=== PATIENT | male | born 1960 | race Caucasian/White ===

== ENCOUNTER 2017-08-24 06:55 | Emergency (ER) | payer OTHER ==
[~2017-08-24] VITALS: Ht 185.4 cm; Wt 86.2 kg
[2017-08-24] MEDS ORDERED: NAPROSYN500 MG PO (07:50)
[2017-08-24] MEDS ORDERED: KEFLEX500 M1 PO (08:58)
[2017-08-24 09:15] VITALS: BP 127/79
== END 2017-08-24 09:15 | disposition home or self-care (01) ==
LOC: ER 06:55
DX: M67.472 Ganglion, left ankle and foot (principal)

== ENCOUNTER 2020-03-07 20:37 | Observation (INO) | payer OTHER ==
[~2020-03-07] VITALS: Ht 182.9 cm; Wt 93.0 kg
--- NOTE | ~2020-03-07 | EEG ---
[facility] [place] [address] ELECTROENCEPHALOGRAM Name: KALEN BOLDEN Room #: 206-P [facility]..#: [id number] Admission: 03/08/20 Attend Phys: Akira Kulkarni MD Discharge: Date of : 60 Report #: [id number] THIS REPORT FOR: //name// CC: Akira De La Torre DATE OF SERVICE: 03/09/2020 This patient is being evaluated for an unusual spell. Background activity in this patient's EEG is about 9 Hz and 15 microvolt. It is low voltage activity. Photic stimulation is unremarkable. The patient became drowsy that is associated with bilateral slowing and vertex sharp waves. Throughout the record, no active epileptiform activity was noticed. IMPRESSION: This patient's EEG is somewhat low voltage, which is a normal variation. No active epileptiform activity was noticed. Thank you very much for this referral. By: 1516 1525 Moses Bustamante MD /nt
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
[~2020-03-07 20:37] MED LIST: KEFLEX500 M1 PO; NAPROSYN500 MG PO
[2020-03-07 20:54] VITALS: BP 124/77
[2020-03-07 21:58] LABS: ABSOLUTE NEUTROPHILS 5.2 thou/uL (1.4-8.2); BASOPHILS 0.3 % (0.0-2.0); EOSINOPHILS 2.5 % (0.0-3.0); HEMATOCRIT 49.4 % (42.0-52.0); HEMOGLOBIN 16.2 gm/dL (14.0-18.0); LYMPHOCYTES 14.1 % (24.0-44.0); MCH 28.3 pg (26.0-34.0); MCHC 32.8 g/dL (28.0-37.0); MCV 86.3 fL (80.0-100.0); PLATELET COUNT 204 thou/uL (150-400); POLYS 71.1 % (36.0-66.0); RBC 5.73 mil/uL (4.50-6.00); RDW 15.2 % (10.5-14.5); WBC 7.3 thou/uL (4.0-11.0)
[2020-03-07 22:04] LABS: ANION GAP 10 mmol/L (7-16); BUN 15 mg/dL (7-18); CALCIUM 8.6 mg/dL (8.5-10.1); CHLORIDE 106 mmol/L (98-107); CO2 25 mmol/L (21-32); CREATININE 1.2 mg/dL (0.7-1.3); GLUCOSE 153 mg/dL (74-106); POTASSIUM 3.8 mmol/L (3.5-5.1); SODIUM 141 mmol/L (136-145)
[2020-03-07 22:13] LABS: MAGNESIUM 1.7 mg/dL (1.8-2.4); TROPONIN-I <0.06 ng/mL (<0.06)
[2020-03-08] VITALS (9 sets, daily range): BP systolic 114–138; BP diastolic 72–86
--- NOTE | 2020-03-08 01:26 | NUR ---
GIRLFRIEND: TERESO MONTELONGO - [phone] CALL WITH ANY UPDATES
--- NOTE | 2020-03-08 16:08 | NUR ---
PT CAME TO UNIT AT 0810. VSS. PT REQUIRED STROKE SCALE, CALLED HOUSE SUP TO INFORM OF THIS. PT TRANSFERED TO CCU IMMEDIATELY AFTER.
--- NOTE | 2020-03-08 18:29 | NUR ---
PT ADMITED FROM ER. ADMISSION HX AND ASSESSMENT COMPLETED. VSS. ALERT AND ORIENTED. SCORE 0 ON NIH. NEUROLOGY AND CARDIOLOGY CONSULTED. REPORT FEELING MUCH BETTER. NSR ON TELE. NO CONCERNS AT THIS TIME.
[2020-03-09 00:12] VITALS: BP 101/56
[2020-03-09 05:01] VITALS: BP 99/57
[2020-03-09 05:20] LABS: HEMOGLOBIN 16.9 gm/dL (14.0-18.0); MCH 28.4 pg (26.0-34.0); MCHC 32.5 g/dL (28.0-37.0); MCV 87.2 fL (80.0-100.0); RBC 5.96 mil/uL (4.50-6.00); RDW 15.2 % (10.5-14.5); WBC 6.4 thou/uL (4.0-11.0)
--- NOTE | 2020-03-09 05:23 | NUR ---
ASSESSMENT DOCUMENTED.PT BEEN RESTING IN NO ACUTE DISTRESS.A/OX4.VSS.SR/SBRADY ON MONITOR.DENIES DIZZINESS,CHEST PAIN OR SHORTNESS OF BREATH OR SLURRED SPEECH .TOLERATING ACTIVITIES.DR ALVA ROUNDED ON THE PATIENT.STRESS ECHO ORDERED.POSSIBLE DISCHARGE TO HOME TODAY IF STRESS ECHO IS NORMAL.DR PERAZA ORDERED EEG WELL.WILL CONT TO MONITOR PER POC.
[2020-03-09 06:08] LABS: CHOLESTEROL 142 mg/dL (<200); HDL CHOLESTEROL 43 mg/dL (>40); LDL CHOLESTEROL 86 mg/dL (<100); TC:HDL 3.3 Ratio (Not establshd); TRIGLYCERIDE 67 mg/dL (<150); VLDL 13 mg/dL (<40)
[2020-03-09 06:11] LABS: SERUM ASSESSMENT Clear
[2020-03-09 06:23] LABS: CALCIUM 8.5 mg/dL (8.5-10.1); CREATININE 1.2 mg/dL (0.7-1.3); MAGNESIUM 1.9 mg/dL (1.8-2.4); POTASSIUM 4.4 mmol/L (3.5-5.1)
[2020-03-09 07:06] LABS: GLYCOHEMOGLOBIN (HGB A1C) 5.5 % (4.8-5.6)
--- NOTE | 2020-03-09 07:48 | EKG ---
[facility] [place] [address] [place] [address] ELECTROCARDIOGRAM REPORT Name: KALEN BOLDEN Room #: 206-P ADM IN M.R.#: [id number] Admission: 03/08/20 Attend Phys: Akira Kulkarni MD Discharge: Date of : 60 Report #: [id number] THIS REPORT FOR: cc: Adria De La Torre MD, Bernard O. MD Lundgren, Craig H. 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
[2020-03-09 08:00] VITALS: BP 112/70
--- NOTE | 2020-03-09 10:51 | NUR ---
PROBABLY DISCHARGING TODAY AFTER TESTS. HOME WITH HOLTER MONITOR. VSS. DENIES CP, SOA. SB PER TELE. SLOW HEART RATE MAY BE D/T EXCELLENT PHYSICAL CONDITION; HE RUNS AND LIFTS WEIGHTS.
[2020-03-09 12:44] VITALS: BP 112/70
--- NOTE | 2020-03-09 13:58 | NUR ---
5N CONSULT RECEIVED. Pt SEEN BY MARQUISE VEGA NP. Pt DISCHARGED FROM ACUTE OT SERVICES. TOO HIGH LEVEL FOR ACUTE REHAB AND Pt REPORTED FEELING HE IS AT BASELINE. PLAN TO D/C HOME TODAY AFTER TESTING. THANK YOU FOR THIS REFERRAL.
[2020-03-09] MEDS ORDERED: ASA81BEC PO (14:47)
--- NOTE | 2020-03-09 15:20 | NUR ---
PT IS HAVING STRESS/ECHO TODAY. PT DEFERRED THERAPY FOR ST STATING HE WAS BACK AT BASELINE. PT WORKED WITH OT BUT STATES BEING BACK AT BASELINE WELL. IT WAS RELAYED TO CM THAT PATIENT HAD QUESTIONS REGARDING DISABILITY. CM ATTEMPTED TO SPEAK WITH PATIENT BUT HE IS OUT OF HIS ROOM FOR TESTING. CM LEFT WITH MED-ASSIST TO DISCUSS DISABILITY WITH PATIENT AND QUALIFICATIONS. CM WILL CONTINUE TO FOLLOW TO ASSIST NEEDED.
--- NOTE | 2020-03-09 15:43 | EXE ---
[facility] [place] [address] STRESS ECHOCARDIOGRAM Name: KALEN BOLDEN Room #: 206-P [facility] M..#: [id number] Admission: 03/08/20 Attend Phys: Akira Kulkarni MD Discharge: Date of : 60 Report #: [id number] THIS REPORT FOR: cc: Adria De La Torre MD, Bernard O. MD Lammoglia, Francisco J. MD ~ THIS REPORT FOR: //name// APPROVED REPORT Study performed: 03/09/2020 14:04:27 Exam: Stress Echocardiogram Indication: Syncope Patient Location: In-Patient Stress Nurse: Katlin Borges RN Room #: 206 Status: routine Ht: 6 ft 0 in HR: 83 bpm BP: 118/80 mmHg Rhythm: NSR Medical History Exercise History: Physically active Procedure The patient underwent an Exercise Stress Test using the Denny Protocol. Blood pressure, heart rate, and EKG were monitored. An Echocardiogram was performed by health information systems technician in four stages in quad fashion. At peak stress, four selected images were obtained and placed side by side with resting images for comparison. Stress Test Details Stress Test: Exercise stress testing was performed using a Denny protocol. HR Resting HR: 82 bpm Max Heart Rate (APMHR): 161 bpm Max HR Achieved: 155 bpm Target HR (85% APMHR): 136 bpm % of APMHR: 96 Recovery HR: 101 bpm HR response to stress: Normal HR response to stress BP [facility] [address] [place] [address] STRESS ECHOCARDIOGRAM Name: KALEN BOLDEN Room #: 206-P [facility] [place] ..#: [id number] Admission: 03/08/20 Attend Phys: Akira Kulkarni MD Discharge: Date of : 60 Report #: [id number] Resting BP: 118/80 mmHg Max BP: 162/82 mmHg Recovery BP: 120/70 mmHg BP response to stress: Normal blood pressure response to stress. ECG Clinical Reason for Termination: Maximal effort Exercise duration: 13 min 32 sec Highest Stage Achieved: Stage 5: 5.0 mph at 18% grade. Exercise capacity: 17.5 METs Overall Exercise Capacity for Age: Excellent Stress ECG Conclusion 1. Subjectively negative for ischemia 2. Electrocardiographically negative for ischemia 3. Adequate functional capacity 4. No exercise-induced dysrhythmias Pre-Stress Echo The resting Echocardiogram showed normal left ventricular contractility with an estimated Ejection Fraction of about >55%. The resting echocardiogram demonstrated normal wall motion in all wall segments. Post-Stress Echo The stress Echocardiogram showed normal left ventricular contractility with an estimated Ejection Fraction of about >70%. Compared to rest, there were no stress-induced wall motion abnormalities. Conclusion Clinical Response: Non-ischemic Exercise Capacity: Satisfactory Stress ECG Response: Non-ischemic Stress Echo Images: Non-ischemic 1. Low ischemic risk study 2. Slight systolic anterior movement of the chordae tendineae noted without obstruction No prior study available for comparison. Other Information Study Quality: Good [facility] [address] [place] [address] STRESS ECHOCARDIOGRAM Name: YUANKALEN ZEINAB Room #: 206-P ADM IN .R.#: [id number] Admission: 03/08/20 Attend Phys: Akira Kulkarni MD Discharge: Date of : 60 Report #: [id number] <Conclusion> 1. Low ischemic risk study 2. Slight systolic anterior movement of the chordae tendineae noted without obstruction <ELECTRONICALLY SIGNED> By: Richie Bolanos MD 03/09/20 1543 1543 1543 Richie Bolanos MD /INF
[2020-03-09 15:52] VITALS: BP 112/70
== END 2020-03-09 17:49 | disposition home or self-care (01) ==
LOC: ER 20:37 → 2N 03-08 00:31 → EROBS 03-08 00:31 → 4W 03-08 07:55 → 2N 03-08 08:29
PROVIDERS: Emergency Medicine; Nurse Practitioner Family; ADMIT Hospitalist; ATTEND Hospitalist
DX: R55 Syncope and collapse (principal); G45.9 Transient cerebral ischemic attack, unspecified; K21.9 Gastro-esophageal reflux disease without esophagitis; R11.2 Nausea with vomiting, unspecified; G47.33 Obstructive sleep apnea (adult) (pediatric); R29.6 Repeated falls; Z79.899 Other long term (current) drug therapy
CPT/HCPCS: 10081

== ENCOUNTER 2020-05-11 15:26 | Emergency (ER) | payer OTHER ==
[~2020-05-11] VITALS: Ht 182.9 cm; Wt 97.5 kg
[~2020-05-11 15:26] MED LIST changes: +ASA81BEC PO
[2020-05-11 15:54] VITALS: BP 123/74
== END 2020-05-11 17:11 | disposition home or self-care (01) ==
LOC: ER 15:26
DX: S00.03XA Contusion of scalp, initial encounter (principal); M25.561 Pain in right knee; M54.5 Low back pain; M25.512 Pain in left shoulder; Z79.82 Long term (current) use of aspirin; W01.0XXA Fall on same level from slipping, tripping and stumbling without subsequent striking against object, initial encounter; Y93.89 Activity, other specified; Y92.89 Other specified places as the place of occurrence of the external cause; Y99.8 Other external cause status

== ENCOUNTER 2020-05-13 17:57 | Emergency (ER) | payer OTHER ==
[~2020-05-13] VITALS: Ht 182.9 cm; Wt 97.5 kg
[2020-05-13 21:16] VITALS: BP 144/82
--- NOTE | 2020-05-14 07:40 | EKG ---
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
== END 2020-05-13 21:16 | disposition home or self-care (01) ==
LOC: ER 17:57
DX: S06.0X9A Concussion with loss of consciousness of unspecified duration, initial encounter (principal); R42 Dizziness and giddiness; Z98.890 Other specified postprocedural states; Z79.82 Long term (current) use of aspirin; W00.0XXA Fall on same level due to ice and snow, initial encounter; Y93.21 Activity, ice skating; Y92.89 Other specified places as the place of occurrence of the external cause; Y99.8 Other external cause status